=== PATIENT | male | born 1965 | race American Indian/Alaskan Native ===

== ENCOUNTER 2017-08-23 12:45 | Emergency (ER) | payer SELFPAY ==
--- NOTE | 2017-08-23 14:10 | Emergency Department Report ---
ED Extremity Problem HPI - General Chief complaint: Extremity Problem,Nontraumatic Stated complaint: LOWER BACK PAIN Time Seen by Provider: 08/23/17 13:46 Source: patient, family Mode of arrival: Ambulatory Limitations: No Limitations - History of Present Illness Initial comments: Patient here with his family reports that he has right lower back pain and numbness to his right buttocks going down to his right thigh and that he has a slipped disc and experienced this occasionally. Patient said that he has chronic right knee pain. N also reports that he needs assistance with getting surgery to his right knee. Patient said he has been having needles and pins sensation to his right foot at his big toe and swelling redness that flared up over the last 2 days. When asked, patient denies any history of gout but reports that he eats seafood and drinks beer and he's been doing that more than usual over the last week. Blood pressure is 154/105 and patient says that he has high blood pressure that he is not on any blood pressure medication. Patient said that they told him about [facility] and registration and he is going to need some information so he can schedule an appointment to follow-up for primary care for medical problems. Patient said he does not have a primary care physician at present and he was going to use [facility] for his medical care but [facility] refused to see him now because he does not live and [place] or [facility]. He said that he is been having chronic pain for the past 2 years and was managed at [facility] but now they told him that he has to go elsewhere. Pain is 8 out of 10 2 in his lower back radiating down his right buttocks and right thigh and right great toe pain with swelling and redness also ate at a 10 a can and feeling like pins and needles. Patient reports pain is worse with movement better with resting. He said is been taking over-the- counter pain medication but it's not helping. Denies any difficulty breathing, chest pain or shortness of breath. Denies any history of blood clots. Her studies been having increased swelling which she has not had before to his right leg and tightness around his right calf. Denies any recent surgeries or convalescent period. Denies any history of clotting disorder. She medical problem is hypertension and chronic pain with history of bilateral knee and left elbow surgery. Denies any dizziness, nausea or vomiting, headache, blurred vision. MD Complaint: extremity pain, extremity swelling, joint swelling, joint paint, other (right lumbar pain) Onset/Timin -: days(s) Location: right, lower extremity, knee, toe, other (right back, lower) History of Same: Yes (except for rt toe) -: Yes arthralgia, No fever, No associated dyspnea, No associated chest pain Radiation: distal Severity scale (0 -10): 8 Quality: burning, aching, constant Consistency: constant Improves with: rest Worsens with: weight bearing, walking, palpation Associated Symptoms: arthralgias. denies: chest pain, shortness of breath, fever, myalgias, rash - Related Data Previous Rx's Medication Instructions Recorded Last Taken Type Acetaminophen/Codeine [Tylenol 1 tab PO Q6H PRN 3 Days #12 tab 08/23/17 Unknown Rx /Codeine # 3 tab] Naproxen 500 mg PO BID PRN 4 Days #12 tablet 08/23/17 Unknown Rx methylPREDNISolone [Medrol] 4 mg PO QAM 6 Days #1 tab.ds.pk 08/23/17 Unknown Rx Allergies Allergy/AdvReac Type Severity Reaction Status Date / Time aspirin Allergy Hives Verified 08/23/17 13:14 ED Review of Systems ROS: Stated complaint: LOWER BACK PAIN Other details as noted in HPI Comment: All other systems reviewed and negative Constitutional: no symptoms reported Respiratory: no symptoms reported Cardiovascular: denies: chest pain, palpitations, dyspnea on exertion, edema, syncope, paroxysmal nocturnal dyspnea Gastrointestinal: denies: abdominal pain, nausea, vomiting, diarrhea, constipation Musculoskeletal: back pain, joint swelling, arthralgia, other. denies: myalgia Skin: denies: rash (swelling to right lower leg) Neurological: paresthesias. denies: headache, weakness, numbness, abnormal gait , vertigo (numbness and tingling to buttocks, thigh and great toe right lower extremity) ED Past Medical Hx - Past Medical History Previous Medical History?: Yes Hx Hypertension: Yes (no medication) Hx Arthritis: Yes (knees, back and elbows) Additional medical history: Chronic pain - Surgical History Past Surgical History?: Yes Additional Surgical History: Bilat knee surgery, L elbow surgery - Family History Family history: hypertension - Social History Smoking Status: Never Smoker Substance Use Type: None - Medications Home Medications: Home Medications Medication Instructions Recorded Confirmed Last Taken Type Acetaminophen/Codeine [Tylenol 1 tab PO Q6H PRN 3 Days #12 tab 08/23/17 Unknown Rx /Codeine # 3 tab] Naproxen 500 mg PO BID PRN 4 Days #12 tablet 08/23/17 Unknown Rx methylPREDNISolone [Medrol] 4 mg PO QAM 6 Days #1 tab.ds.pk 08/23/17 Unknown Rx ED Physical Exam - General Limitations: No Limitations (Rt great toe with erythema and swelling) General appearance: alert, in no apparent distress - Head Head exam: Present: atraumatic, normocephalic, normal inspection - Eye Eye exam: Present: normal appearance, PERRL, EOMI. Absent: periorbital swelling , periorbital tenderness Pupils: Present: normal accommodation - ENT ENT exam: Present: normal exam, normal orophraynx, mucous membranes moist - Neck Neck exam: Present: normal inspection, full ROM, other (C-spine tenderness). Absent: tenderness, meningismus, lymphadenopathy - Respiratory Respiratory exam: Present: normal lung sounds bilaterally. Absent: respiratory distress, wheezes, rales, rhonchi, stridor, chest wall tenderness, accessory muscle use - Cardiovascular Cardiovascular Exam: Present: regular rate, normal rhythm, normal heart sounds. Absent: systolic murmur, diastolic murmur - GI/Abdominal GI/Abdominal exam: Present: soft, normal bowel sounds. Absent: distended, tenderness, guarding, rebound, rigid, organomegaly, mass, bruit, pulsatile mass , hernia - Extremities Exam Extremities exam: Present: normal inspection, full ROM, tenderness, normal capillary refill, joint swelling (Rt great toe), calf tenderness (unable assess for homans signs due to rt great toe pain), other (patient without any clubbing or cyanosis to bilateral lower extremity. He has minimal right leg otherwise all extremities are normal except for right great toe with redness, swelling and tenderness to palpate. Bilateral knees normal exam. No neurovascular compromise. +2 pulses to all extremities. She denies full range of motion to all extremities except his right great toe pain with plantar flexion and dorsiflexion.). Absent: pedal edema - Expanded Lower Extremity Exam Right Hip exam: Present: normal inspection, full ROM, pelvic stability. Absent: tenderness, swelling, abrasion, laceration, ecchymosis, deformity, crepidus, dislocation, erythema, external rotation, internal rotation, shortening Upper Leg exam: Present: normal inspection, full ROM. Absent: tenderness, swelling, abrasion, laceration, ecchymosis, deformity, crepidus, dislocation, erythema Knee exam: Present: normal inspection, full ROM, full knee extension. Absent: tenderness, swelling, abrasion, laceration, ecchymosis, deformity, crepidus, dislocation, erythema, effusion, pain w/ pronation/supination, posterior draw sign, pain/laxity with valgus, pain/laxity with varus Lower Leg exam: Present: normal inspection, full ROM, swelling (mild swelling to right leg without any erythema to the leg.), Laz's sign (unable to assess due to pain to right great toe). Absent: tenderness, abrasion ( due to pain to right great toe,), laceration, ecchymosis, deformity, crepidus, dislocation, erythema, palpable cord Ankle exam: Present: normal inspection, full ROM. Absent: tenderness, swelling , abrasion, laceration, ecchymosis, deformity, crepidus, dislocation, erythema Foot/Toe exam: Present: full ROM (pain with dorsiflexion and plantar flexion of right great toe.), tenderness (great toe), swelling (right great toe), erythema (right great toe). Absent: normal inspection, abrasion, laceration, ecchymosis , deformity, crepidus, dislocation, amputation, puncture wound, foreign body, calcaneal tenderness, tenderness at base of 5th metatarsal, nail avulsion, subungual hematoma Neuro vascular tendon exam: Present: no vascular compromise, significant pain with passive ROM of distal joint (right great toe). Absent: pulse deficit, abnormal cap refill, motor deficit, sensory deficit, tendon deficit, extremity cold to touch, pallor, abnormal 2-point discrimination, decreased fine/light touch, foot drop, peroneal nerve deficit Gait: Positive: observed and limited by pain - Back Exam Back exam: Present: normal inspection, full ROM, other (ambulates without any difficulties). Absent: tenderness, CVA tenderness (R), CVA tenderness (L), muscle spasm, paraspinal tenderness, vertebral tenderness, rash noted - Expanded Back Exam Expanded Back exam: Absent: saddle anesthesia Back exam: Negative Straight Leg Raising: Left, Right - Neurological Exam Neurological exam: Present: alert, oriented X3, normal gait, reflexes normal, other (No focal neurological deficit). Absent: motor sensory deficit - Psychiatric Psychiatric exam: Present: normal affect, normal mood - Skin Skin exam: Present: warm, dry, intact, normal color, erythema (Rt great toe with pain, swelling and tenderness to palpate) ED Course Vital Signs 08/23/17 08/23/17 08/23/17 13:15 14:23 14:24 Temperature 98.6 F Pulse Rate 97 H 91 H Respiratory 18 16 16 Rate Blood Pressure 154/105 156/102 Blood Pressure [Left] O2 Sat by Pulse 98 Oximetry 08/23/17 15:19 Temperature Pulse Rate 88 Respiratory Rate Blood Pressure Blood Pressure 144/91 [Left] O2 Sat by Pulse Oximetry - Reevaluation(s) Reevaluation #1: 08/23/17 15:51 She received Decadron 10 mg IM, Percocet 5/325 2 tablets by mouth, Motrin 100 mg by mouth to manage pain and gout flare up. He also received clonidine 0.1 mg for elevated blood pressure and his blood pressure is better at present. Patient voiced pain is down to 3 out of 10. ED Medical Decision Making - Lab Data Result diagrams: 08/23/17 14:48 08/23/17 14:48 Lab Results 08/23/17 08/23/17 08/23/17 Range/Units 14:48 14:48 14:48 WBC 8.4 (4.5-11.0) K/mm3 RBC 4.86 (3.65-5.03) M/mm3 Hgb 13.7 (11.8-15.2) gm/dl Hct 43.1 (35.5-45.6) % MCV 89 (84-94) fl MCH 28 (28-32) pg MCHC 32 (32-34) % RDW 12.7 L (13.2-15.2) % Plt Count 280 (140-440) K/mm3 Lymph % (Auto) 24.4 (13.4-35.0) % [place] % (Auto) 9.3 H (0.0-7.3) % Eos % (Auto) 1.3 (0.0-4.3) % Baso % (Auto) 0.4 (0.0-1.8) % Lymph # 2.0 (1.2-5.4) K/mm3 [place] # 0.8 (0.0-0.8) K/mm3 Eos # 0.1 (0.0-0.4) K/mm3 Baso # 0.0 (0.0-0.1) K/mm3 Seg Neutrophils % 64.6 (40.0-70.0) % Seg Neutrophils # 5.4 (1.8-7.7) K/mm3 PT 13.0 (12.2-14.9) Sec. INR 0.94 (0.87-1.13) APTT 35.1 (24.2-36.6) Sec. Sodium 141 (137-145) mmol/L Potassium 4.0 (3.6-5.0) mmol/L Chloride 100.6 (98-107) mmol/L Carbon Dioxide 25 (22-30) mmol/L Anion Gap 19 mmol/L BUN 15 (9-20) mg/dL Creatinine 1.2 (0.8-1.5) mg/dL Estimated GFR > 60 ml/min BUN/Creatinine Ratio 13 % Glucose 137 H (75-100) mg/dL Uric Acid 7.6 (3.5-7.6) mg/dL Calcium 9.0 (8.4-10.2) mg/dL - Radiology Data Radiology results: report reviewed Right Lower Extremity Venous Doppler U/S Negative for SVT or DVT - Medical Decision Making ED course: He reports that he is having multiple problems and he needs to be referred to surgeon to have right knee surgery. He has been going to [facility] for the past 2 years but they refused to see him because he does not live in [facility]. Patient is requesting referral. He is reported in flareup of his chronic lower back pain where he said he has a slipped disc and pain is radiating down to his right buttocks and right thigh. He said his right knee pain is flared up and he has had pain, redness and swelling to his right great toe after eating seafood, drinking beer and consume in unusual amount of red meat over the last week. Patient denied any gout flareup in the past but he said he probably had it but he doesn't remember because he's had pain all over for a long time. He Also had elevated blood pressure and he has a history of high blood pressure but said he is not on any medication. Lab work reviewed and stable, ultrasound venous Doppler right lower extremity revealed no SVT or DVT. Patient asymptomatic with elevated but pressure. He was given Motrin 800 mg by mouth, Decadron 10 mg IM, Percocet 5/325 2 tablets by mouth did not control his pain which is better now. He was also given clonidine 0.1 mg for elevated blood pressure with is much better at present. He is referred to radiology section and lab section for details on labs and ultrasound report. This patient in detail laboratory results, ultrasound results, gout diet, need for follow-up to manage his chronic medical problems including chronic pain. He voiced understanding of diagnosis, treatment plan and needed follow-up. Patient discharged home with his family in stable condition with prescription for Medrol Dosepak, naproxen, Tylenol No. 3 and I told him to monitor his blood pressure daily and record and call [facility] tomorrow to schedule an appointment. I discussed with him that he will need to pay a small few basilar income to be seen by a primary care physician. Critical care attestation.: If time is entered above; I have spent that time in minutes in the direct care of this critically ill patient, excluding procedure time. 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 Referred to discharge paperwork for info on clinics. Follow-up with orthopedic doctor for chronic back pain and arthritis. Patient not drive or operate heavy machinery while taking Tylenol 3 as this medication causes drowsiness Please see discharge instruction and gout and follow low purine diet to avoid gout flare up. Prescriptions: Acetaminophen/Codeine [Tylenol /Codeine # 3 tab] 1 tab PO Q6H PRN 3 Days #12 tab PRN Reason: Pain methylPREDNISolone [Medrol] 4 mg PO QAM 6 Days #1 tab.ds.pk Naproxen 500 mg PO BID PRN 4 Days #12 tablet PRN Reason: GOUT PAIN Referrals: [facility] [Outside] - 2-3 Days [facility] [Outside] - 2-3 Days BLAYNE GREENFIELD MD [Staff Physician] - 3-5 Days Forms: Accompanied Note
[2017-08-23] MEDS ORDERED: CATAPRES PO ONE (14:12)
[2017-08-23] MEDS ORDERED: MOTRIN PO ONE (14:12)
[2017-08-23] MEDS ORDERED: DECADRON IM ONE (14:12)
[2017-08-23] MEDS ORDERED: PERCOCET 5/325 PO ONE (14:12)
[2017-08-23 15:00] LABS: Basophils % (Auto) 0.4 % (0.0-1.8); Eosinophils % (Auto) 1.3 % (0.0-4.3); Hematocrit 43.1 % (35.5-45.6); Hemoglobin 13.7 gm/dl (11.8-15.2); Mean Corpuscular HGB Conc 32 % (32-34); Mean Corpuscular Hemoglobin 28 pg (28-32); Mean Corpuscular Volume 89 fl (84-94); Platelet Count 280 K/mm3 (140-440); Red Blood Count 4.86 M/mm3 (3.65-5.03); Red Cell Distribution Width 12.7 % (13.2-15.2); White Blood Count 8.4 K/mm3 (4.5-11.0)
[2017-08-23 15:10] LABS: INR 0.94 (0.87-1.13)
[2017-08-23 15:12] LABS: Partial Thromboplastin Time 35.1 Sec. (24.2-36.6)
[2017-08-23 15:23] LABS: Anion Gap 19 mmol/L; BUN/Creatinine Ratio 13; Blood Urea Nitrogen 15 mg/dL (9-20); Carbon Dioxide 25 mmol/L (22-30); Chloride 100.6 mmol/L (98-107); Glucose 137 mg/dL (75-100); Sodium 141 mmol/L (137-145); Uric Acid 7.6 mg/dL (3.5-7.6)
[2017-08-23 16:20] VITALS: BP 136/77
--- NOTE | 2017-08-24 15:18 | Vascular Lab Report ---
Right Lower Extremity Venous Duplex Study: Reason for Exam: elevated d dimer is in the lateral. Comments on the Right: All veins visualized are freely compressible without evidence of internal echogenicity. Flow is spontaneous and phasic throughout. No evidence of acute or chronic thrombus is seen in any of the vessels visualized. Comments on the Left: A limited duplex study was done of the proximal veins of the left lower extremity. All veins visualized are freely compressible without evidence of internal echogenicity. Flow is spontaneous and phasic throughout. No evidence of acute or chronic thrombus is seen in any of the vessels visualized. Impression: No evidence of acute or chronic deep venous thrombosis in the right lower extremity.
== END 2017-08-23 16:19 | disposition home or self-care (01) ==
LOC: ED 12:45
DX: M10.471 Other secondary gout, right ankle and foot (principal); M54.5 Low back pain; G89.29 Other chronic pain; M54.16 Radiculopathy, lumbar region; I10 Essential (primary) hypertension; Z79.82 Long term (current) use of aspirin
CPT/HCPCS: 36415; 80048; 84550; 85025; 85610; 85730; 93971; 96372; 99284; J1100

== ENCOUNTER 2018-06-09 07:24 | Emergency (ER) | payer SELFPAY ==
[2018-06-09] MEDS ORDERED: SOLU-Medrol ONE (07:47)
[2018-06-09] MEDS ORDERED: PEPCID IV ONE ×2 (07:47→07:49)
[2018-06-09] MEDS ORDERED: SOLU-Medrol IV ONE (07:49)
--- NOTE | 2018-06-09 09:18 | Emergency Department Report ---
ED Rash HPI - HPI Chief Complaint: Allergic Reaction Stated Complaint: ALLERGIC REACTION/TROAT CLOSING Duration: Today Location: Neck (throat) Suspected Cause: Medication Rash Symptoms: Yes Itching, Yes Tongue/Oral Swelling (throat swelling), Yes Choking Sensation, No Facial Swelling, No Breathing Difficulties, No Wheezing/ Dyspnea, No Peeling, No Blistering, No Fever, No Lightheaded, No Malaise, No Myalgias Other History: This is a 52-year-old -[place] male presents for reevaluation of her throat discomfort for several hours. Patient states he was diagnosed with gout and started taking naproxen a few days ago which improved swelling and pain to right foot. He reports a cough and rhinorrhea yesterday and decided to take cough syrup. Shortly after taking cough syrup he started itching and felt like his throat was closing with shortness of breath. Patient' s brought him in for reevaluation. Patient also complains he had an allergic reaction with Tylenol and lip swelling last week and not sure if he is allergic to something. Patient denies tongue swelling, drooling, and chest pain. ED Review of Systems ROS: Stated complaint: ALLERGIC REACTION/TROAT CLOSING Other details as noted in HPI Constitutional: denies: chills, fever ENT: throat pain (throat swelling). denies: ear pain, dental pain, hearing loss , epistaxis, congestion Respiratory: denies: cough, shortness of breath, wheezing Cardiovascular: denies: chest pain, palpitations Gastrointestinal: denies: abdominal pain, nausea, diarrhea Skin: pruritus. denies: rash, lesions Neurological: denies: headache, weakness, paresthesias Psychiatric: denies: anxiety, depression ED Past Medical Hx - Past Medical History Hx Hypertension: Yes (no medication) Hx Arthritis: Yes (knees, back and elbows) Additional medical history: Chronic pain - Surgical History Past Surgical History?: Yes Additional Surgical History: Bilat knee surgery, L elbow surgery - Social History Smoking Status: Never Smoker Substance Use Type: None - Medications Home Medications: Home Medications Medication Instructions Recorded Confirmed Last Taken Type Acetaminophen/Codeine [Tylenol 1 tab PO Q6H PRN 3 Days #12 tab 08/23/17 Unknown Rx /Codeine # 3 tab] Naproxen 500 mg PO BID PRN 4 Days #12 tablet 08/23/17 Unknown Rx methylPREDNISolone [Medrol] 4 mg PO QAM 6 Days #1 tab.ds.pk 08/23/17 Unknown Rx Famotidine [Pepcid] 40 mg PO QHS #14 tablet 06/09/18 Unknown Rx Prednisone [predniSONE 10 mg 10 mg PO .TAPER #1 tab.ds.pk 06/09/18 Unknown Rx (6-Day Pack, 21 Tabs)] hydrOXYzine PAMOATE [Vistaril] 25 mg PO Q6HR PRN #12 capsule 06/09/18 Unknown Rx Rash Exam - Exam General: Vital signs noted. No distress. Alert and acting appropriately. HEENT: Yes Perioral Edema, No Periorbital Edema, No Conjuctival Injection, No Chemosis, No Tongue Edema, No Uvular Edema (uvula midline.), No Compromised Airway, No Drooling Lungs: Yes Good Air Exchange (Normal Breath Sounds), No Wheezes, No Ronchi, No Stridor, No Cough, No Labored Respirations, No Retractions, No Use of Accessory Muscles, No Other Abnormal Lung Sounds Heart: Yes Regular, No Murmur Skin: No Urticarial Rash, No Maculopapular Rash, No Morbilliform rash, No Bulla( e), No Excoriations, No Weeping, No Tenderness, No Erythema, No Edema, No Encrustations ED Course Vital Signs 06/09/18 07:30 Temperature 99.6 F Pulse Rate 111 H Respiratory 16 Rate Blood Pressure 212/118 O2 Sat by Pulse 97 Oximetry Vital Signs 06/09/18 06/09/18 07:30 09:30 Temperature 99.6 F Pulse Rate 111 H 92 H Respiratory 16 20 Rate Blood Pressure 212/118 Blood Pressure 168/96 [Left] O2 Sat by Pulse 97 98 Oximetry ED Medical Decision Making - Medical Decision Making Patient was examined by me. Vitals are normal and patient is in no acute distress. Patient given Solu-Medrol 125 mg IV and Pepcid 20 mg IV, Benadryl 25 mg po once while in triage. Patient reports feeling much better during exam. Start prednisone taper, Vistaril, and Pepcid for. Plan discussed with patient to discharge home and treat outpatient. He agrees with ER plan. Patient discharged home in stable condition. Follow up with PCP in 2-3 days. Critical care attestation.: If time is entered above; I have spent that time in minutes in the direct care of this critically ill patient, excluding procedure time. ED Disposition Clinical Impression: Allergic reaction caused by a drug Qualifiers: Encounter type: initial encounter Qualified Code(s): T78.40XA - Allergy, unspecified, initial encounter Disposition: TO HOME OR SELFCARE Is pt being admited?: No Does the pt Need Aspirin: No Condition: Stable Instructions: Anaphylaxis (ED) Additional Instructions: Follow up with technical operations specialist for skin testing. Complete full course of steroids as prescribed. Follow up with your primary care provider in 2-3 days. Return to the emergency room if wheezing, shortness of breath, throat swelling, drooling, and nausea or vomiting. Prescriptions: Famotidine [Pepcid] 40 mg PO QHS #14 tablet hydrOXYzine PAMOATE [Vistaril] 25 mg PO Q6HR PRN #12 capsule PRN Reason: Itching Prednisone [predniSONE 10 mg (6-Day Pack, 21 Tabs)] 10 mg PO .TAPER #1 tab.ds.pk Referrals: [facility] [Outside] - 3-5 Days KEESHA MAYO MD [Staff Physician] - 3-5 Days [facility] [Provider Group] - 3-5 Days Forms: Accompanied Note Time of Disposition: 09:29 Print Language: PASHTO
[2018-06-09] MEDS ORDERED: BENADRYL PO ONE (09:21)
[2018-06-09 19:04] VITALS: BP 168/96
== END 2018-06-09 09:45 | disposition home or self-care (01) ==
LOC: ED 07:24
DX: L29.9 Pruritus, unspecified (principal); T50.905A Adverse effect of unspecified drugs, medicaments and biological substances, initial encounter; I10 Essential (primary) hypertension; M19.90 Unspecified osteoarthritis, unspecified site; Z88.6 Allergy status to analgesic agent; Y92.89 Other specified places as the place of occurrence of the external cause
CPT/HCPCS: 96374; 96375; 99282; J2930